=== PATIENT | male | born 1945 | race Caucasian/White ===

== ENCOUNTER 2016-07-15 04:05 | Inpatient (IN) ==
[2016-07-10 11:05] LABS: MANUAL DIFF NEEDED? NO
[2016-07-10 11:19] LABS: GLUCOSE URINE >1000 mg/dL (NEGATIVE); URINE MICRO REVIEW NEEDED? NO; URINE SOURCE CLEAN CATCH
--- NOTE | 2016-07-10 11:27 | EKG Report ---
Test Performed on : 07/10/2016 10:40:40 AM Test Reason : PAT Blood Pressure : / mmHG Vent. Rate : 077 BPM Atrial Rate : 077 BPM P-R Int : 162 ms QRS Dur : 094 ms QT Int : 366 ms P-R-T Axes : 058 -52 043 degrees QTc Int : 414 ms Normal sinus rhythm. Left anterior fascicular block Abnormal ECG No previous ECGs available Confirmed by Dean NULL, Mian Person ([id number]) on 07/11/2016 6:24:55 PM
[2016-07-10 11:45] LABS: URINE RBC <10 /HPF (<10); URINE WBC <10 /HPF (<10)
[2016-07-10 11:46] LABS: BILIRUBIN URINE NEGATIVE (NEGATIVE); BLOOD URINE NEGATIVE (NEGATIVE); COLOR YELLOW; PH URINE 5.5; PROTEIN URINE NEGATIVE (NEGATIVE); SP GRAVITY URINE 1.033; TURBIDITY URINE CLEAR (CLEAR); UR EPITHELIAL CELLS <10 /HPF (<10); URINE BACTERIA NEGATIVE /HPF
[2016-07-10 11:47] LABS: LEUKOCYTES URINE NEGATIVE (NEGATIVE); NITRITE URINE NEGATIVE (NEGATIVE); UROBILINOGEN URINE NORMAL (NORMAL)
[2016-07-10 11:51] LABS: BASO% 0.4 % (0.0-0.8); EOS# 0.37 X1000 (0.0-0.7); EOS% 3.7 % (0.0-10.0); HEMATOCRIT 45.1 % (42.0-52.0); HEMOGLOBIN 15.4 g/dL (14.0-18.0); IMM GRAN# 0.08 X1000 (0.0-0.04); IMM GRAN% 0.8 % (0.0-0.5); LYMPH# 2.11 X1000 (1.2-3.4); LYMPH% 20.8 % (20.5-51.1); MCH 30.1 PG (27-31); MCHC 34.1 g/dL (33-37); MCV 88.1 FL (81-99); MONO# 0.81 X1000 (0.11-0.59); MPV 10.5 FL (7.4-10.4); NEUT% 66.3 % (42.2-75.2); PLT 300 X1000 (130-400); RBC 5.12 XMIL (4.7-6.1)
[2016-07-10 12:10] LABS: INR 0.99; PROTIME 10.4 Seconds (9.2-11.7); PTT 30.4 Seconds (22.0-36.0)
[2016-07-10 12:37] LABS: AGAP 17; BUN 22 mg/dL (8-22); CALCIUM 10.4 mg/dL (8.8-10.2); CHLORIDE 98 mmol/L (98-107); COSMO 289; POTASSIUM 4.6 mmol/L (3.5-5.1); SODIUM 138 mmol/L (136-145); TCO2 23 mmol/L (25-35)
[2016-07-15] MEDS ORDERED: COLACE ONE (09:49)
[2016-07-15] MEDS ORDERED: LYRICA ONE (09:49)
[2016-07-15] MEDS ORDERED: PEPCID ONE (09:50)
[2016-07-15] MEDS ORDERED: CELEBREX ONE (09:50)
[2016-07-15] MEDS ORDERED: REGLAN ONE (09:50)
[2016-07-15] MEDS ORDERED: LR 1,000 ML ONE (09:50)
[2016-07-15] MEDS ORDERED: KEFZOL 2 GM/D5W 2 GM/50 ML IVPB ONE (09:51)
[2016-07-15] MEDS ORDERED: TORADOL ONE (12:19)
[2016-07-15] MEDS ORDERED: VANCOMYCIN ONE (12:19)
[2016-07-15] MEDS ORDERED: CYKLOKAPRON 1,000 MG/NS 1,000 MG/100 ML IVPB ONE ×2 (12:19→12:20)
[2016-07-15] MEDS ORDERED: MARCAINE 0.25% PF/EPI 1:200,000 ONE (12:19)
[2016-07-15] MEDS ORDERED: SODIUM CHLORIDE 0.9% ONE (12:19)
[2016-07-15] MEDS ORDERED: NEOSPORIN G.U. IRRIGANT ONE (12:19)
[2016-07-15] MEDS ORDERED: CLAVE SECONDARY SET 11953 ONE (12:20)
[2016-07-15] MEDS ORDERED: EXPAREL 1.3% ONE (12:20)
[2016-07-15] MEDS ORDERED: DURAMORPH ONE (12:21)
[2016-07-15] MEDS ORDERED: DIPRIVAN 1% 500 MG/50 ML BOTTLE ONE (15:10)
[2016-07-15] MEDS ORDERED: NS 1,000 ML ONE (15:14)
[2016-07-15] MEDS ORDERED: LABETALOL (DOSE) ONE (15:50)
[2016-07-15] MEDS ORDERED: DECADRON ONE (15:51)
[2016-07-15] MEDS ORDERED: ATROPINE ONE (15:51)
[2016-07-15] MEDS ORDERED: XYLOCAINE-MPF 2% ONE (15:51)
[2016-07-15] MEDS ORDERED: ZOFRAN ONE (15:51)
[2016-07-15] MEDS ORDERED: LR 2,000 ML ONE (15:51)
[2016-07-15] MEDS ORDERED: OFIRMEV 1000 MG/ISOTONIC SOLN 1,000 MG/100 ML BOTTLE ONE (15:51)
[2016-07-15] MEDS: ZOFRAN ONE (16:23)
[2016-07-15] MEDS ORDERED: HUMULIN R IV ONE (16:30)
[2016-07-15] MEDS ORDERED: MILK OF MAGNESIA PO PRN (16:30)
[2016-07-15] MEDS ORDERED: AMBIEN PO PRN (16:30)
[2016-07-15] MEDS ORDERED: ZOFRAN IV PRN (16:30)
[2016-07-15] MEDS ORDERED: MORPHINE IV PRN (16:30)
[2016-07-15] MEDS ORDERED: OXY IR PO PRN (16:30)
[2016-07-15] MEDS: PHENERGAN ONE (16:40)
[2016-07-15 17:34] LABS: URINE MICRO REVIEW NEEDED? NO; URINE SOURCE CATH
[2016-07-15 17:38] LABS: BILIRUBIN URINE NEGATIVE (NEGATIVE); BLOOD URINE NEGATIVE (NEGATIVE); COLOR YELLOW; GLUCOSE URINE >1000 mg/dL (NEGATIVE); LEUKOCYTES URINE NEGATIVE (NEGATIVE); NITRITE URINE NEGATIVE (NEGATIVE); PROTEIN URINE NEGATIVE (NEGATIVE); SP GRAVITY URINE 1.027; TURBIDITY URINE CLEAR (CLEAR); UR EPITHELIAL CELLS <10 /HPF (<10); URINE BACTERIA NEGATIVE /HPF; URINE RBC <10 /HPF (<10); URINE WBC <10 /HPF (<10); UROBILINOGEN URINE NORMAL (NORMAL)
[2016-07-15] MEDS: TYLENOL PO SCH (18:04)
[2016-07-15] MEDS: ULTRAM PO SCH (19:53)
[2016-07-15] MEDS: LYRICA PO SCH (19:53)
[2016-07-15] MEDS: COLACE PO SCH (19:53)
[2016-07-15] MEDS: GLUCOPHAGE XR PO SCH (19:53)
[2016-07-15] MEDS: NS 1,000 ML IV SCH (19:54)
[2016-07-15] MEDS: ZOCOR PO SCH (19:54)
[2016-07-15] MEDS: FLOMAX PO SCH (19:54)
[2016-07-15] MEDS: PERIDEX MT SCH (19:54)
[2016-07-15] MEDS: CELEBREX PO SCH (19:54)
[2016-07-15] MEDS: KEFZOL 2 GM/D5W 2 GM/50 ML IVPB IV SCH (22:00)
--- NOTE | 2016-07-15 23:46 | OPERATIVE NOTE ---
PROCEDURE DATE: 07/15/2016 PREOPERATIVE DIAGNOSIS: Left knee degenerative joint disease. POSTOP DIAGNOSIS: Left knee degenerative joint disease. PROCEDURE: Left total knee arthroplasty using [employer] size 7 femoral component, size 7 tibial baseplate, an 11 mm articular insert and a 35 mm patellar component. ANESTHESIA: Spinal. SURGEON: Edson Roa MD. GENETIC COORDINATOR: Marylin Bernabe PA-C. 2ND GENETIC COORDINATOR: You Barbosa RN. COMPLICATIONS: None. BLOOD LOSS: Minimal. DRAINS: Hemovac x1. TOURNIQUET TIME: Approximately an hour and a half. DESCRIPTION OF PROCEDURE: The patient brought to the operative suite and placed in supine position. After successful administration of spinal anesthesia a well-padded tourniquet was placed on left proximal thigh, left lower extremity was prepped and draped in usual sterile fashion. Leg was exsanguinated. Tourniquet insufflated to 350 torr. A longitudinal incision made beginning the superior pole patella and extended distally tibia tuberosity, dissected sharply through the skin, subcutaneous tissue then full-thickness skin flaps were elevated medially and laterally. A medial arthrotomy was made with a vastus snip. The medial capsule was elevated off the medial tibial plateau, the prepatellar fat pad, ACL, PCL, medial meniscus and lateral meniscus were excised. A drill was entered in the center distal femur. An intramedullary guide was placed and cutting block was pinned in place this cut with oscillating saw. The femur was sized to size 7, size 7 cutting block was pinned in place. Anterior cuts, chamfer cuts and posterior condylar cuts were made with oscillating saw. Marginal osteophytes removed with rongeur. A box cutting block was pinned in place. Box cut was made box osteotome and oscillating saw. Posterior condyle osteophytes removed with curved osteotome and rongeur. Attention is then directed tibia, a drill was entered in the center of the tibia. Intramedullary guide was placed and then 3 mm taken off the tibia Referencing off the low side which was medial, the tibial cutting block was pinned into place. The articular surface the tibial plateau was removed with oscillating saw. Marginal osteophytes removed with rongeur. Flexion-extension gaps were checked and balanced 11 mm. The tibia sized to size 7, size 7 guide was used for the fin punch. The tibial trial, femoral trial and 11 mm articular insert placed, taken through range of motion, found have excellent alignment, balancing and range of motion. We did do a slight medial release for balancing. Attention was then directed to the patella and 9 mm of the articular surface of patella removed with oscillating saw, patella sized to size 35, a size 35 guide was used drill peg holes, lateral facet was chamfered 30 to 45 degrees. Patella trial was placed, taken through range of motion found to have excellent patella tracking. All trials were then removed. Knee was copiously irrigated and dried being certain all bone being removed the tibial component, femoral component and patellar component were smooth, placed excess cement be removed with [place]. Once the cement hardened excess cement was again removed with an osteotome. Knee was again copiously irrigated and dried being certain all bone and cement removed. The trial articular insert was removed. The knee was copiously infiltrated with Exparel including posterior capsule, anterior capsule, medial and lateral collateral ligaments, anterior musculature and subcutaneous tissue. The definitive articular insert was then locked onto the tibia and the knee was again taken range of motion again found to have excellent alignment, balancing, range of motion patellar tracking. The knee was copiously irrigated and dried being certain all bone and cement removed. The medial side was closed with 0 Vicryl, skin edge approximated with 2-0 Vicryl, skin was closed with running 3-0 Vicryl and then Dermabond and the a sterile dressing was applied. The patient tolerated the procedure well without complication. At the end the procedure all counts correct x2. Patient transferred to the recovery room in stable condition. cc: Edson Roa MD
[2016-07-16] MEDS: ULTRAM PO SCH ×2 (02:35→09:27)
[2016-07-16] MEDS: TYLENOL PO SCH ×3 (02:37→09:25)
[2016-07-16] MEDS: KEFZOL 2 GM/D5W 2 GM/50 ML IVPB IV SCH (05:59)
[2016-07-16] MEDS: NS 1,000 ML IV SCH (06:00)
[2016-07-16] MEDS ORDERED: XARELTO PO SCH (06:00)
[2016-07-16 06:15] LABS: HEMATOCRIT 37.1 % (42.0-52.0); HEMOGLOBIN 12.7 g/dL (14.0-18.0)
[2016-07-16] MEDS ORDERED: FENTANYL ONE (06:29)
[2016-07-16] MEDS ORDERED: VERSED ONE (06:29)
[2016-07-16 06:35] LABS: AGAP 14; BUN 23 mg/dL (8-22); CALCIUM 8.7 mg/dL (8.8-10.2); CHLORIDE 100 mmol/L (98-107); COSMO 285; POTASSIUM 4.5 mmol/L (3.5-5.1); SODIUM 136 mmol/L (136-145); TCO2 22 mmol/L (25-35)
[2016-07-16] MEDS ORDERED: PRILOSEC PO SCH (07:00)
[2016-07-16] MEDS ORDERED: INSULIN PEN NEEDLES ONE (07:32)
[2016-07-16] MEDS: PERIDEX MT SCH ×2 (07:52→09:15)
[2016-07-16] MEDS: LYRICA PO SCH ×2 (07:52→09:48)
[2016-07-16] MEDS: CELEBREX PO SCH ×2 (07:52→09:17)
[2016-07-16] MEDS: COLACE PO SCH ×2 (07:52→09:17)
[2016-07-16] MEDS: ZOCOR PO SCH (07:52)
[2016-07-16] MEDS: GLUCOPHAGE XR PO SCH ×2 (07:52→09:16)
[2016-07-16] MEDS: FLOMAX PO SCH ×2 (07:53→09:17)
--- NOTE | 2016-07-16 08:20 | HISTORY AND PHYSICAL ---
CHIEF COMPLAINT: Left knee pain. HISTORY OF PRESENT ILLNESS: This is a 70-year-old male with a history of gradually increasing pain in his left knee. He knows of no specific injury to his knee. He has been treated conservatively without relief. He was evaluated in the office and found to need a left total knee arthroplasty. The surgical procedure, as well as risks and benefits were explained. The patient at this time is ready to proceed. SERIOUS ILLNESSES: Diabetes, hypertension. PAST SURGICAL HISTORY: He had a partial amputation of his left big toe. ALLERGIES: Not allergic to any medications. REGULAR MEDICATIONS: Norvasc 5 one a day, fenofibrate 160 one a day, insulin 15 units subcutaneous daily, meloxicam 15 one a day, metformin 1000 twice a day, naproxen 375 one a day, Prilosec 20 one a day, Accupril 20 one a day, Zocor 40 one a day, Flomax 0.4 twice a day. REVIEW OF SYSTEMS: HEENT: No history of migraines, dizziness, loss of conscious, CVA. Respiratory: He is a nonsmoker. No history of asthma, emphysema, or shortness of breath. Heart: No history of heart abnormalities. Abdomen: He has history of reflux and takes medication for this. Genitourinary: Also takes Flomax for urinary difficulties. PHYSICAL EXAMINATION: GENERAL APPEARANCE: This is a 70-year-old male, alert and oriented. His primary care physician is Dr. Oreilly. HEENT: Pupils are equal, round, reactive. NECK: Good range of motion without adenopathy. RESPIRATORY: Respirations are equal, unlabored, clear bilaterally. HEART: Regular rate and rhythm. ABDOMEN: Soft, nontender. Bowel sounds present. EXTREMITIES: He complains of pain in his left knee. He has minimal swelling at this time. He walks with a limp. Has good sensation and pulses distally. IMPRESSION: Degenerative disease of the left knee. PLAN: Admit at this time for a left total knee arthroplasty. Dictated by You Barbosa RN for Edson Roa MD This chart was documented by the indicated scribe, You Barbosa RN and accurately reflects the services I performed and decisions made by me, Edson Roa MD, as attested by the provider's signature. cc: Edson Roa MD
[2016-07-16] MEDS ORDERED: NORVASC PO SCH (09:00)
[2016-07-16] MEDS ORDERED: LOFIBRA PO SCH (09:00)
[2016-07-16] MEDS ORDERED: ACCUPRIL PO SCH (09:00)
[2016-07-16] MEDS ORDERED: DECADRON IV ONE (09:00)
[2016-07-16] MEDS ORDERED: LANTUS SUBQ SCH (09:00)
[2016-07-16] MEDS ORDERED: PEPCID PO SCH (09:00)
[2016-07-16] MEDS: PHENERGAN ONE (09:44)
[2016-07-16] MEDS: ZOFRAN ONE (09:44)
[2016-07-16 14:13] VITALS: BP 152/76
--- NOTE | 2016-07-17 04:21 | DISCHARGE SUMMARY ---
ADMISSION DATE: 07/15/2016 DISCHARGE DATE: 07/16/2016 DISCHARGE DIAGNOSIS: Left total knee arthroplasty. DISCHARGE MEDICATIONS: See discharge medication list. DISPOSITION: Patient discharged to home with home health and physical therapy. Instructed to return for any signs or symptoms of infection, deep venous thrombosis. Instructed to return to see Dr. Roa next . HOSPITAL COURSE: On the day of admission, the patient underwent a left total knee arthroplasty. His postoperative course was unremarkable. At discharge, he is afebrile, tolerating a regular diet, ambulating well with physical therapy. His wound is clean, dry, intact, without sign of infection. He is discharged home in stable condition with instructions to follow up as described above. cc: Edson Roa MD
== END 2016-07-16 14:43 | disposition home health service (06) ==
LOC: SURHOLD 04:05 → EDSTATUS 09:47 → 4N 15:48
PROVIDERS: ADMIT Orthopaedic Surgery; ATTEND Orthopaedic Surgery